=== PATIENT | female | born 1945 | race Caucasian/White ===

== ENCOUNTER 2017-10-08 12:29 | Observation (INO) | payer MEDICARE ==
[~2017-10-08] VITALS: Ht 170.2 cm; Wt 48.1 kg
[~2017-10-08 12:29] MED LIST: CALC-123 PO; SIMV20TA3 PO
[2017-10-08] MEDS ORDERED: ONDANSETRON ODT 4 MG ONE (13:12)
[2017-10-08] MEDS ORDERED: MORPHINE SULFATE 4 MG/ML, 1ML ONE (13:13)
[2017-10-08] MEDS ORDERED: CEFAZOLIN PMX 1GM/50ML 50 ML ONE (13:22)
[2017-10-08] MEDS ORDERED: ONDANSETRON ODT 4 MG PO ONE (13:30)
[2017-10-08] MEDS ORDERED: CEFAZOLIN PMX 1GM/50ML 50 ML IV ONE (13:30)
[2017-10-08] MEDS ORDERED: MORPHINE SULFATE 4 MG/ML, 1ML IVPush ONE (13:30)
[2017-10-08 13:59] LABS: BASOPHILS # (AUTO) 0.03 x10^3/uL (0-0.1); BASOPHILS % (AUTO) 0 % (0-1); EOSINOPHILS # (AUTO) 0.05 x10^3/uL (0-0.4); EOSINOPHILS % (AUTO) 1 % (1-7); LYMPHOCYTES % (AUTO) 18 % (22-44); MD NO; MEAN CORPUSCULAR VOLUME 93.9 fL (80-100); MEAN PLATELET VOLUME 8.4 fL (7.4-10.4); MONOCYTES # (AUTO) 0.54 x10^3/uL (0.2-0.8); MONOCYTES % (AUTO) 5 % (2-9); NEUTROPHILS # (AUTO) 7.98 x10^3/uL (1.8-6.8); NEUTROPHILS % (AUTO) 76 % (42-75); PLATELET COUNT 240 x10^3/uL (130-400); RED BLOOD COUNT 4.57 x10^6/uL (3.82-5.3); RED CELL DISTRIBUTION WIDTH 13.1 % (9.6-15.2)
[2017-10-08] MEDS ORDERED: DIPH,PERTUSS(ACELL),TET VAC/PF 0.5 ML IM-VACC ONE ×2 (14:00→16:13)
[2017-10-08] MEDS ORDERED: ETOMIDATE 20 MG/10 ML IVPush ONE (14:00)
[2017-10-08 14:10] LABS: ANION GAP 9 mmol/L (5-15); CALCIUM 9.6 mg/dL (8.5-10.1); CHLORIDE 107 mmol/L (98-107); CREATININE 0.95 mg/dL (0.55-1.02)
[2017-10-08] MEDS ORDERED: ETOMIDATE 20 MG/10 ML ONE (14:15)
[2017-10-08 14:56] LABS: INTERNATIONAL NORMALIZED RATIO 0.99 (0.93-1.1); PROTHROMBIN TIME 10.2 Seconds (9.6-11.5)
[2017-10-08 15:59] VITALS: BP 156/69
[2017-10-08] MEDS ORDERED: BUPIVACAINE/PF 0.5% ONE (17:25)
[2017-10-08] MEDS ORDERED: FENTANYL PF 250 MCG/5ML ONE (17:50)
[2017-10-08] MEDS ORDERED: MIDAZOLAM 1 MG/ML, 2ML ONE (17:50)
[2017-10-08] MEDS ORDERED: PROPOFOL 10 MG/ML, 20ML ONE (18:15)
[2017-10-08] MEDS ORDERED: SUCCINYLCHOLINE 20 MG/ML, 10ML ONE (18:15)
[2017-10-08] MEDS ORDERED: NEOSPORIN OINT, 15GM ONE (18:58)
[2017-10-08] MEDS ORDERED: MEPERIDINE/PF 25MG/0.5ML IVPush PRN (19:30)
[2017-10-08] MEDS ORDERED: ONDANSETRON 2MG/ML, 2ML IVPush PRN (19:30)
[2017-10-08] MEDS ORDERED: HYDROcodone/APAP 7.5-325MG/15ML UDC PO PRN (19:30)
[2017-10-08] MEDS ORDERED: LABETALOL 5MG/ML, 20ML IV PRN (19:30)
[2017-10-08] MEDS ORDERED: PROMETHAZINE 25 MG/ML, 1ML IV PRN (19:30)
[2017-10-08] MEDS ORDERED: METOCLOPRAMIDE 5 MG/ML, 2ML IV PRN (19:30)
[2017-10-08] MEDS ORDERED: HYDROmorphone 1 MG/ML, 1ML IV PRN (19:30)
[2017-10-08] MEDS ORDERED: hydrALAzine 20 MG/ML, 1ML IV PRN (19:30)
[2017-10-08] MEDS ORDERED: morphine SULFATE 10 MG/ML, 1ML IV PRN (19:30)
[2017-10-08] MEDS ORDERED: FENTANYL PF 100 MCG/2ML IV PRN (19:30)
[2017-10-08] MEDS ORDERED: ALBUTEROL SULFATE 2.5 MG/3 ML NPPB PRN (19:30)
[2017-10-08] MEDS ORDERED: ALBUTEROL/IPRATROPIUM 2.5MG/0.5MG, 3 ML NPPB PRN (19:30)
[2017-10-08] MEDS ORDERED: OXYC5TAB3 PO (21:03)
[2017-10-08] MEDS ORDERED: CEPH-368 PO (21:04)
== END 2017-10-08 21:40 | disposition home or self-care (01) ==
LOC: ED 15:43 → EDIP 15:49 → 4NOR 20:05
PROVIDERS: ADMIT Orthopaedic Surgery; ATTEND Orthopaedic Surgery
DX: S52.502B Unspecified fracture of the lower end of left radius, initial encounter for open fracture type I or II (principal); S52.552A Other extraarticular fracture of lower end of left radius, initial encounter for closed fracture; M19.90 Unspecified osteoarthritis, unspecified site; W18.30XA Fall on same level, unspecified, initial encounter; Y92.312 Tennis court as the place of occurrence of the external cause; Y93.73 Activity, racquet and hand sports; Y99.8 Other external cause status; Z96.612 Presence of left artificial shoulder joint
CPT/HCPCS: 25607; 36415; 71045; 73100; 73110; 80048; 85025; 85610; 85730; 90471; 90715; 93005; 96365; 96375; 99285; C1713; G0378; J0330; J0690; J2250; J2704; J3010; Q0162; J3490

== ENCOUNTER 2019-05-20 10:37 | Outpatient (CLI) | payer MEDICARE ==
[~2019-05-20 10:37] MED LIST changes: +CEPH-368 PO; +OXYC5TAB3 PO
== END 2019-05-20 23:59 | disposition home or self-care (01) ==
LOC: CVU 10:37
PROVIDERS: ATTEND Internal Medicine Cardiovascular Disease
DX: I65.23 Occlusion and stenosis of bilateral carotid arteries (principal)
CPT/HCPCS: 93880